=== PATIENT | female | born 1995 | race Caucasian/White ===

== ENCOUNTER 2019-08-22 13:36 | Emergency (ER) | payer MEDICARE, MEDICAID, SELFPAY ==
[2019-08-22 14:19] VITALS: BP 109/80; PULSE 96; RESP 16; TEMP 36.2; O2SAT 98
--- NOTE | 2019-08-22 14:47 | ED.URI ---
HPI - URI/Sore Throat General Chief Complaint: Upper Respiratory Infection Stated Complaint: Cold/Flu Time Seen by Provider: 08/22/19 14:40 Source: patient and RN notes reviewed Mode of arrival: ambulatory Limitations: no limitations History of Present Illness HPI Narrative: 23-year-old female presents with concern for 3-day history of left ear pain, sinus pain, nasal drainage, face pain that started in the last 48 hours. She denies sore throat, fever, general malaise, body aches. Reports she is been taking Tylenol cold and flu with no relief. MD elicited complaint: nasal congestion Related Data Home Medications Medication Instructions Recorded Confirmed losartan 50 mg PO DAILY 08/22/19 08/22/19 methocarbamol [Robaxin-750] 750 mg PO TID 08/22/19 08/22/19 omeprazole 20 mg PO DAILY 08/22/19 08/22/19 Allergies Allergy/AdvReac Type Severity Reaction Status Date / Time ciprofloxacin [From Cipro] AdvReac Unknown Verified 08/22/19 14:36 midazolam [From Versed] AdvReac Hyperactive Verified 08/22/19 14:37 Review of Systems Review of Systems: Narrative: CONSTITUTIONAL: Denies malaise, chills, sweats, or fever. EYES: Denies visual changes, redness, or discharge. ENT: Reports rhinorrhea, congestion, sinus pain, otalgia. Denies sore throat. CARDIOVASCULAR: Denies chest pain, palpitations, or edema. RESPIRATORY: Reports cough. Denies dyspnea. GASTROINTESTINAL: Denies abdominal pain, nausea, vomiting, diarrhea SKIN: Denies rash or itching. MUSCULOSKELETAL: Denies myalgia. NEUROLOGIC: Denies headache. All systems reviewed & are unremarkable except as noted in HPI and below PMFSH Comments At time of signature, agree with nursing past medical, surgical, social and family history. There is no relevant family history pertinent to the presenting complaint Exam Narrative: Exam Narrative: GENERAL: Well-appearing, well-nourished, and in no acute distress. HEAD: Normocephalic EYES: PERRLA, conjunctivae clear ENT: Nares clear, turbinates edematous and erythematous, clear discharge. Mucous membranes moist. TM pearly cash with dull light reflex bilaterally, left otitis effusion; no tragal tenderness. Oropharynx mildly erythematous without lesions. Tonsils not enlarged and without exudate, no drooling, no hoarseness, no trismus. NECK: Supple. No lymphadenopathy CHEST: Clear to auscultation, breath sounds equal. No wheezing, rhonchi, rales, or stridor. No respiratory distress, speaks in full sentences. HEART: Regular rate and rhythm. No murmur heard. Normal peripheral pulses. SKIN: Warm, dry, no rash. NEURO: Alert and oriented x3. PSYCH: Normal mood and affect Course Course Emergency Course: Patient is aware of diagnosis, understands and agrees to treatment plan. Anticipatory guidance given. Patient agrees to follow-up as directed and is aware of reasons to seek care at the emergency department. Portions of this record may have been created with voice recognition software Vital Signs Vital signs: Vital Signs Temperature 97.1 F L 08/22/19 14:19 Pulse Rate 96 08/22/19 14:19 Respiratory Rate 16 08/22/19 14:19 Blood Pressure 109/80 08/22/19 14:19 Pulse Oximetry 98 08/22/19 14:19 Temperature 97.1 F L 08/22/19 14:19 Pulse Rate 96 08/22/19 14:19 Respiratory Rate 16 08/22/19 14:19 Blood Pressure 109/80 08/22/19 14:19 Pulse Oximetry 98 08/22/19 14:19 Reviewed. MDM - URI/Sore Throat MDM Narrative Medical decision making narrative: Differential diagnosis considered: Strep pharyngitis, allergic rhinitis, upper respiratory tract infection, sinusitis, rhinosinusitis, nasopharyngitis. viral pharyngitis, otitis media, otitis externa, pneumonia, bronchitis, viral cough syndrome, viral syndrome, and influenza. Exam findings show no acute concerns or changes; patient is non-toxic appearing and is in no distress. Patient is appropriate for outpatient treatment and follow-up. Lab Data Attestation: I reviewed the patient'
== END 2019-08-22 15:10 | disposition home or self-care (01) ==
PROVIDERS: Emergency Provider Nurse Practitioner; PCP Family Medicine
DX: J02.0 Streptococcal pharyngitis (principal)
CPT/HCPCS: 87880; 99203; G0463

== ENCOUNTER 2020-03-21 10:18 | Emergency (ER) | payer MEDICARE, MEDICAID, SELFPAY ==
[2020-03-21 10:26] VITALS: BP 115/79; PULSE 86; RESP 14; TEMP 36.5; O2SAT 100
--- NOTE | 2020-03-21 10:44 | ED.GENADULT ---
HPI - General Adult General Chief complaint: Urogenital-Female Stated complaint: UTI Time Seen by Provider: 03/21/20 10:44 Source: patient and RN notes reviewed Mode of arrival: ambulatory Limitations: no limitations History of Present Illness HPI narrative: 24-year-old female presents with urinary complaints for the past 4-5 days. Dysuria consist of low back pain, burning, frequency, and urgency. Symptoms increased over the past 48 hours. Tylenol, last this morning at midnight without relief.? Denies fever or chills. No significant pelvic pain. No vaginal discharge.? No concerns for STDs. Exacerbating factors urinating.? Denies hematuria or vaginal bleeding. Denies being , LMP 03/16/20. Denies nausea, vomiting, and abdominal pain.? Tolerating liquids well.? Remains active. The patient reports she have not been diagnosed with COVID-19. The patient reports she is not waiting for the results of a COVID-19 lab test. The patient reports she do not have fever, chills, weakness, or fatigue. The patient reports she do not have a new or worsening cough or shortness of breath. Denies chest pain. The patient reports she do not have any rhinorrhea, congestion, sore throat, loss of taste, and diarrhea. Denies recent traveling. Denies concerns for COVID-19 or exposures been home with limited outdoor exposure except for essential household needs and return home. At this time, patient is not suspected of having COVID-19. Some parts of this dictation were generated by voice recognition software and may contain typographical and/or grammatical inaccuracies. Related Data Home Medications Medication Instructions Recorded Confirmed losartan 50 mg PO DAILY 08/22/19 03/21/20 methocarbamol [Robaxin-750] 750 mg PO TID 08/22/19 03/21/20 omeprazole 20 mg PO DAILY 08/22/19 03/21/20 cholecalciferol (vitamin D3) 25 mcg PO DAILY 03/21/20 03/21/20 [Vitamin D3] diphenhydramine HCl [Benadryl 50 mg PO HS 03/21/20 03/21/20 Allergy] ferrous sulfate 325 mg PO DAILY 03/21/20 03/21/20 metoprolol tartrate 50 mg PO Q12H 03/21/20 03/21/20 norethindrone (contraceptive) 0.35 mg PO DAILY 03/21/20 03/21/20 Allergies Allergy/AdvReac Type Severity Reaction Status Date / Time ciprofloxacin [From Cipro] AdvReac Palpitation Verified 03/21/20 10:37 s midazolam [From Versed] AdvReac Hyperactive Verified 03/21/20 10:37 Review of Systems Review of Systems: Narrative: CONSTITUTIONAL: Denies fever, chills, sweats. EYES: Denies visual changes, redness, discharge. ENT: Denies rhinorrhea, congestion, sore throat, otalgia. CARDIOVASCULAR: Denies chest pain, palpitations, edema. RESPIRATORY: Denies dyspnea, wheezing, cough. GASTROINTESTINAL: Denies abdominal pain, nausea, vomiting, diarrhea. GENITOURINARY: Complains of dysuria (low back pain, burning, frequency, and urgency). Denies hematuria, abnormal discharge. SKIN: Denies rash or itching. MUSCULOSKELETAL: Denies acute back pain, joint pain, or myalgia. NEUROLOGIC: Denies numbness or focal weakness. PSYCHIATRIC: Denies anxiety or depression. All systems reviewed & are unremarkable except as noted in HPI and below. [facility] Past Medical History Medical History (Updated 03/21/20 @ 17:45 by CRISTI Augustin) Aneurysm Aortic, not repaired enlarged Anxiety Cyst Removed from spine on 02/19/2019 Depression History of gastroesophageal reflux (GERD) Loeys-Sukhjinder syndrome Seasonal allergies Surgical History Surgical History (Updated 03/21/20 @ 17:45 by CRISTI Augustin) History of ankle surgery RT Club foot surgery, bilateral ankle and knee surgery with 8 pins and screws inserted and removed History of spinal surgery X3 Family History Family History (Updated 03/21/20 @ 17:46 by CRISTI Augustin) Father Alive and well Mother Hypertension Social History Social History (Updated 03/21/20 @ 17:47 by CRISTI Augustin) Smoking status: Never smoker Tobacco type
== END 2020-03-21 10:59 | disposition home or self-care (01) ==
PROVIDERS: Emergency Provider Nurse Practitioner Family; PCP Family Medicine
DX: N39.0 Urinary tract infection, site not specified (principal); K21.9 Gastro-esophageal reflux disease without esophagitis
CPT/HCPCS: 81003; 87077; 87086; 87088; 87186; 99213; G0463

== ENCOUNTER 2020-07-11 11:01 | Emergency (ER) | payer MEDICARE, MEDICAID, SELFPAY ==
[2020-07-11 11:10] VITALS: BP 148/96; PULSE 93; RESP 16; TEMP 36.2; O2SAT 99
[2020-07-11 11:30] VITALS: BP 148/96; PULSE 93; RESP 16; TEMP 36.2; O2SAT 99
--- NOTE | 2020-07-11 11:51 | ED.GENADULT ---
HPI - General Adult General Chief complaint: Urogenital-Female Stated complaint: Urogenital-Female Source: patient Mode of arrival: ambulatory Limitations: no limitations History of Present Illness HPI narrative: Patient presents for evaluation of urinary symptoms. She reports urinary frequency, urgency, sensation of incomplete emptying, dysuria, mild back pain and pelvic discomfort. Symptom onset was this morning. She states she had symptoms consistent with a urinary tract infection recently and contacted her [employer]. She was placed on oral Keflex which she completed last week. She states she her symptoms did improve while on medication. She denies any fever, chills, vaginal bleeding or discharge. LMP 06/18/2020. Compliant with oral contraception. She states she was recently tested for STIs and all testing was negative. No new sexual partner since her testing. Related Data Home Medications Medication Instructions Recorded Confirmed losartan 50 mg PO DAILY 08/22/19 07/11/20 methocarbamol [Robaxin-750] 750 mg PO TID 08/22/19 07/11/20 omeprazole 20 mg PO DAILY 08/22/19 07/11/20 cholecalciferol (vitamin D3) 25 mcg PO DAILY 03/21/20 07/11/20 [Vitamin D3] diphenhydramine HCl [Benadryl 50 mg PO HS 03/21/20 07/11/20 Allergy] ferrous sulfate 325 mg PO DAILY 03/21/20 07/11/20 metoprolol tartrate 50 mg PO Q12H 03/21/20 07/11/20 drospirenone (contraceptive) 4 mg PO DAILY 07/11/20 07/11/20 [Slynd] fluticasone propionate [Allergy 2 spray INTRANASAL DAILY 07/11/20 07/11/20 Relief (fluticasone)] Allergies Allergy/AdvReac Type Severity Reaction Status Date / Time ciprofloxacin [From Cipro] AdvReac Palpitation Verified 07/11/20 11:27 s midazolam [From Versed] AdvReac Hyperactive Verified 07/11/20 11:27 Review of Systems Review of Systems: Narrative: CONSTITUTIONAL: Denies fever, chills, or sweats. EYES: Denies visual changes, redness, or discharge. ENT: Denies rhinorrhea, congestion, sore throat, or otalgia. CARDIOVASCULAR: Denies chest pain, palpitations, or edema. RESPIRATORY: Denies cough or dyspnea. GASTROINTESTINAL: Reports mild nausea. Denies abdominal pain, vomiting, or diarrhea. GENITOURINARY: Reports dysuria, urinary frequency, urgency, sensation of incomplete emptying SKIN: Denies rash or itching. MUSCULOSKELETAL: Reports mild low back pain. Denies joint pain, or myalgia. NEUROLOGIC: Denies headache, numbness, dizziness, or weakness. PSYCHIATRIC: Denies anxiety or depression. [facility] Past Medical History Medical History Aneurysm Aortic, not repaired enlarged Anxiety Cyst Removed from spine on 02/19/2019 Depression History of gastroesophageal reflux (GERD) Loeys-Sukhjinder syndrome Seasonal allergies Surgical History Surgical History History of ankle surgery RT Club foot surgery, bilateral ankle and knee surgery with 8 pins and screws inserted and removed History of spinal surgery X3 Family History Family History Father Alive and well Mother Hypertension Aortic aneurysm Social History Social History Smoking status: Never smoker Tobacco type: cigarettes Second hand tobacco smoke exposure: No Alcohol intake: current Substance use: never Additional occupation/education comments: Disable Gender identity (if verbalized by the patient): Female Exam Narrative: Exam Narrative: GENERAL: Well-appearing, well-nourished, and in no acute distress. HEAD: Normocephalic, atraumatic. EYES: PERRLA and EOMI. ENT: Nares clear, no rhinorrhea or epistaxis. Mucous membranes moist. Oropharynx without tonsillar hypertrophy exudate or other lesions. Bilateral TMs pearly cash nonbulging NECK: Supple. No adenopathy or masses. No carotid bruits or JVD JERRELL
== END 2020-07-11 12:13 | disposition home or self-care (01) ==
PROVIDERS: Emergency Provider Nurse Practitioner; PCP Nurse Practitioner Adult Health
DX: N30.00 Acute cystitis without hematuria (principal); F32.9 Major depressive disorder, single episode, unspecified; K21.9 Gastro-esophageal reflux disease without esophagitis; Q87.89 Other specified congenital malformation syndromes, not elsewhere classified
CPT/HCPCS: 81003; 87077; 87086; 87088; 87186; 99213; G0463